=== PATIENT | female | born 1945 | race Caucasian/White ===

== ENCOUNTER → 2018-02-20 09:08 | Outpatient (CLI) | payer MEDICARE, OTHER, SELFPAY ==
[2018-02-20 10:30] LABS: Absolute Lymphocyte Count 0.86 X10^3/ul (0.83-4.51); Absolute Neutrophil Count 1.3 X10^3/uL (2.0-7.7); Basophil# 0.01 X10^3/uL; Basophil% 0.4 % (0-1); Eosinophil# 0.06 X10^3/uL; Eosinophils% 2.4 % (0-5); Hematocrit 35.6 % (37-47); Hemoglobin 10.9 g/dl (12.0-15.0); Lymphocyte # 0.86 X10^3/ul (4.0); Lymphocyte % 35.1 % (19-41); Mean Corp Hgb Conc 30.6 g/gl (32-36); Mean Corpuscular Hgb 23.7 pg (27.0-32.0); Mean Corpuscular Volume 77.6 fL (81-99); Monocyte# 0.25 X10^3/uL; Monocyte% 10.2 % (0-10); Neutrophil # 1.27 X10^3/uL (2.7-7.7); Neutrophil % 51.9 % (47-70); Platelet Count 67 K/mm3 (150-450); RBC Distribution Width CV 18.5 % (11.6-14.6); RBC Distribution Width SD 52.2 fl (35.1-43.9); Red Blood Count 4.59 M/mm3 (4.2-5.4); White Blood Count 2.5 K/mm3 (4.4-11.0)
[2018-02-20 10:32] LABS: Differential Indicated SCAN CRITERIA MET; POSITIVE COUNT NO; POSITIVE DIFFERENTIAL NO; POSITIVE MORPHOLOGY YES
[2018-02-20 10:59] LABS: ALB/GLOB Ratio 0.8 RATIO (0.9-2.4); AST(SGOT) 40 U/L (15-37); Alanine Aminotransfer ALT/SGPT 40 U/L (13-56); Albumin, Serum 3.1 g/dL (3.2-5.0); Alkaline Phosphatase 89 U/L (45-117); Anion Gap 6 (5-15); BUN 11 mg/dL (7-18); BUN/Creat Ratio 15.5 RATIO (10-20); Calcium,Total 8.2 mg/dL (8.5-10.1); Chloride 107 mmol/L (98-107); Creatinine, Serum 0.71 mg/dL (0.55-1.02); EST Glomerular Filtration Rate 86 mL/min (>60); Est Glom Filt Rate - Afr Amer 104 mL/min (>60); Glucose 94 mg/dL (74-106); Potassium 3.8 mmol/L (3.5-5.1); Protein, Total 7.1 g/dL (6.4-8.2); Protein, Urine (Random) < 6.0 mg/dL (<11.9); Protein:Creat Ratio 107 mg/g CRE (0-200); Sodium Level 141 mmol/L (136-145)
[2018-02-20 11:01] LABS: Color, Urine Yellow (Yellow); Glucose, Dipstick Normal (Normal); Ketone-Dipstick Negative (Negative); Leukocyte Esterase-Dipstick 25 /ul (Negative); Nitrite-Dipstick Negative (Negative); Occult Blood-Urine Negative /ul (Negative); Protein-Dipstick Negative (Negative); Specific Gravity, Urine 1.005 (1.002-1.030); Urine Bilirubin Dipstick Negative (Negative); Urine Clarity Clear (Clear); Urine Urobilinogen Normal (Normal)
== END ==
PROVIDERS: Family Provider Family Medicine; PCP Family Medicine; Visit Provider Internal Medicine Rheumatology
DX: M35.00 Sjogren syndrome, unspecified (principal); E89.0 Postprocedural hypothyroidism; I10 Essential (primary) hypertension
CPT/HCPCS: 36415; 80053; 81002; 82570; 84156; 85025

== ENCOUNTER → 2018-10-13 09:07 | Outpatient (CLI) | payer MEDICARE, OTHER, SELFPAY ==
[2018-10-13 10:01] LABS: Color, Urine Yellow (Yellow); Glucose, Dipstick Normal (Normal); Ketone-Dipstick Negative (Negative); Leukocyte Esterase-Dipstick 500 /ul (Negative); Nitrite-Dipstick Negative (Negative); Occult Blood-Urine 50 /ul (Negative); Protein-Dipstick 15 mg/dl (Negative); Urine Bilirubin Dipstick Negative (Negative); Urine Clarity Sl. Cloudy (Clear); Urine Urobilinogen Normal (Normal)
[2018-10-13 10:27] LABS: Differential Indicated SCAN CRITERIA MET; Hemoglobin 8.9 g/dl (12.0-15.0); Mean Corp Hgb Conc 29.7 g/gl (32-36); Mean Corpuscular Hgb 21.2 pg (27.0-32.0); Mean Corpuscular Volume 71.4 fL (81-99); POSITIVE COUNT NO; POSITIVE DIFFERENTIAL NO; POSITIVE MORPHOLOGY YES; Platelet Count 92 K/mm3 (150-450); RBC Distribution Width CV 19.7 % (11.6-14.6); RBC Distribution Width SD 50.2 fl (35.1-43.9); White Blood Count 2.8 K/mm3 (4.4-11.0)
[2018-10-13 10:28] LABS: Absolute Lymphocyte Count 0.78 X10^3/ul (0.83-4.51); Absolute Neutrophil Count 1.7 X10^3/uL (2.0-7.7); Basophil# 0.01 X10^3/uL; Basophil% 0.4 % (0-1); Eosinophil# 0.06 X10^3/uL; Eosinophils% 2.2 % (0-5); Lymphocyte # 0.78 X10^3/ul (4.0); Monocyte# 0.24 X10^3/uL; Monocyte% 8.6 % (0-10); Neutrophil % 60.8 % (47-70)
[2018-10-13 10:41] LABS: Protein, Urine (Random) 21.8 mg/dL (<11.9); Protein:Creat Ratio 125 mg/g CRE (0-200)
[2018-10-13 10:46] LABS: ALB/GLOB Ratio 0.8 RATIO (0.9-2.4); AST(SGOT) 40 U/L (15-37); Alanine Aminotransfer ALT/SGPT 37 U/L (13-56); Albumin, Serum 3.1 g/dL (3.2-5.0); Alkaline Phosphatase 79 U/L (45-117); Anion Gap 9 (5-15); BUN 12 mg/dL (7-18); BUN/Creat Ratio 16.1 RATIO (10-20); Calcium,Total 8.3 mg/dL (8.5-10.1); Chloride 109 mmol/L (98-107); Creatinine, Serum 0.74 mg/dL (0.55-1.02); EST Glomerular Filtration Rate 81 mL/min (>60); Est Glom Filt Rate - Afr Amer 98 mL/min (>60); Globulin 4.1 g/dL (2.2-4.2); Glucose 97 mg/dL (74-106); Potassium 3.8 mmol/L (3.5-5.1); Protein, Total 7.2 g/dL (6.4-8.2); Sodium Level 142 mmol/L (136-145)
[2018-10-13 11:05] LABS: Anisocytosis 2+; Differential Comment SCANNED; Hypochromasia 2+; Platelet Estimate SLT DEC (ADEQ)
--- OUTSIDE RECORDS SUMMARY | 2018-12-06 12:04 | XMS RPT_ITS ---
:1945 Author Organization OHIP Care Team Providers Name Role Phone EDI REINA Referring Unavailable EDI REINA Attending Unavailable EDI REINA Referring Unavailable KEENAN SOUTH Admitting Unavailable KEENAN SOUTH Attending Unavailable KEENAN SOUTH Primary Care Unavailable KEENAN SOUTH Consulting Unavailable PROVIDER, UNKNOWN Consulting Unavailable PROVIDER, UNKNOWN Consulting Unavailable PROVIDER, UNKNOWN Consulting Unavailable KEENAN SOUTH Admitting Unavailable KEENAN SOUTH Attending Unavailable KEENAN SOUTH Primary Care Unavailable KEENAN SOUTH Consulting Unavailable PROVIDER, UNKNOWN Consulting Unavailable PROVIDER, UNKNOWN Consulting Unavailable PROVIDER, UNKNOWN Consulting Unavailable Remi, Lizzie Attending Unavailable [facility] Unavailable Vellanfransisco, Lizzie Attending Unavailable Remi, Lizzie Referring Unavailable [facility] Unavailable PROBLEMS PROBLEMS DATE TYPE CONDITION / CODE ATTENDING STATUS SOURCE 10/13/2018 Unknown M35.00 - Sicca Vellanki, Active [place] syndrome, [facility] unspecified / Hospital M35.00(ICD-10) Repository 10/13/2018 Unknown E89.0 - Vellanki, Active [facility] hypothyroidism / Hospital E89.0(ICD-10) Repository 10/13/2018 Unknown I10 - Essential Remi, Active [place] (primary) [facility] hypertension / Hospital I10(ICD-10) Repository 08/18/2018 Admitting Hypothyroidism, KEENAN SOUTH Active [facility] unspecified / [facility] E039(ICD-10) Hospital Repository 08/18/2018 Principle HypothyroidismSVEN SCOTT Active [facility] unspecified / [facility] E039(ICD-10) [facility] Repository 01/15/2018 Active Unknown / EDI REINA A Active [facility] [place] Repository 01/14/2017 Active Decreased white NA Active [facility] blood cell count, [facility] unspecified / [place] D72.819(ICD-10) Repository 06/05/2011 Active Thrombocytopenia, NA Active [facility] unspecified / [facility] D69.6(ICD-10) [place] Repository PROCEDURES PROCEDURES No Procedure Records FoundRESULTS RESULTS URINALYSIS, ROUTINE Collected: 10/13/2018 Status: F Source: [place] ([place] 9:18 [place] [facility] Order Comment: How was Urine Obtained? CLEAN CATCH TYPE CODE TESTS RESULT OUT OF RANGE REFERENCE UNITS LAB L400.3000 Yellow COLOR Normal Yellow LAB L400.3050 Clear Normal CLARITY Sl. Cloudy LAB L400.3200 Normal mg/dl Normal GLUCOSE, UR Normal LAB L400.3300 Negative mg/dL Normal BILIRUBIN URINE Negative LAB L400.3400 Negative mg/dl Normal KETONE UR Negative LAB L400.3465 1.002-1.030 Normal SP.GR. DIPSTX 1.010 LAB L400.3550 5.0 - 8.0 pH UR Normal 7.0 LAB L400.3600 Negative mg/dl High PROT 15 DIPSTX LAB L400.3700 Normal mg/dl Normal UROBILI Normal LAB L400.3750 Negative Normal NITRITE UR Negative LAB L400.3780 Negative /ul High 50 OCCULT BLOOD-UR LAB L400.3800 Negative /ul High LEUK ESTERASE 500 Performed By: #### L400.2010 #### [facility] [address] [place], [address] CBC W/DIFF, AUTOMATED Collected: 10/13/2018 Status: F Source: [place] 9:18 AM [facility] [place] TYPE CODE TESTS RESULT OUT OF RANGE REFERENCE UNITS LAB L100.1000 4.4-11.0 K/mm3 Low 2.8 WBC LAB L100.1200 4.2-5.4 M/mm3 4.20 Normal RBC LAB L100.1300 12.0-15.0 g/dl Low 8.9 HGB LAB L100.1400 37-47 % Low 30.0 HCT LAB L100.1500 81-99 fL Low 71.4 MCV LAB L100.1600 27.0-32.0 pg Low 21.2 MCH LAB L100.1700 32-36 g/gl Low 29.7 MCHC LAB L100.1810 11.6-14.6 % High 19.7 RDW CV LAB L100.1820 35.1-43.9 fl High 50.2 RDW SD LAB L100.1900 150-450 K/mm3 Low 92 PLT LAB L100.2000 6.2-12.0 fl Test Normal MPV not performed LAB L100.2100 47-70 % 60.8 Normal NEUT% LAB L100.2200 19-41 % 28.0 Normal LY% LAB L100.2300 0-10 % 8.6 Normal MONO% LAB L100.2400 0-5 % 2.2 Normal EO% LAB L100.2500 0-1 % 0.4 Normal BASO% LAB L100.2550 0.0-0.9 % 0.000 Normal IM GRAN % Result Comment: IG% - Immature Granulocytes (promyelocytes, myelocytes and metamyelocytes) > 1% indicates that a LEFT SHIFT is Present. LAB L100.2620 2.0-7.7 X10 3/uL Low Absolute Neut 1.7 LAB L100.2720 0.83-4.51 X10 3/ul Low Absolute Lymph 0.78 LAB L100.4500 SMEAR COMMENT Normal SCANNED LAB L100.5500 ADEQ PLT EST Normal SLT DEC LAB L100.7300 ANISO Normal 2+ LAB L100.7600 HYPOCHROMASIA Normal 2+ Performed By: #### L100.0100 #### [facility] [address] [place], [address] PROTEIN+CREATININE Collected: Status: F Source: [place] [facility],URINE 10/13/2018 9:18 AM [facility] [place] TYPE CODE TESTS RESULT OUT OF RANGE REFERENCE UNITS LAB L501.1200 NO RANGE EST. mg/dL Normal UR CREAT 174.00 LAB L501.1930 <11.9 mg/dL High 21.8 PROTEIN,UR.R AN. LAB L501.1940 0-200 mg/g CRE Normal PROT:CRE 125 RATIO Performed By: #### L501.0900 #### [facility] [place], [address] COMPREHENSIVE METABOLIC Collected: 10/13/2018 Status: F Source: [place] [facility] 9:18 AM [facility] [place] TYPE CODE TESTS RESULT OUT OF RANGE REFERENCE UNITS LAB L501.0100 74-106 mg/dL Normal GLU 97 Result Comment: Please note revised GLUCOSE reference range effective 2017. LAB L501.1000 7-18 mg/dL Normal BUN 12 LAB L501.1100 0.55-1.02 mg/dL Normal CREAT,SERUM 0.74 Result Comment: The validity of the calculated GFR AND GFRAA in patients over 70 years has not been determined. Clinical correlation is essential. LAB L501.1110 >60 mL/min Normal EST GFR 81 Result Comment: Non- GFR Calc LAB L501.1115 >60 mL/min Normal EST GFR - AA 98 Result Comment: GFR Calc LAB L501.1300 10-20 RATIO Normal BUN/CRE 16.1 LAB L501.1500 6.4-8.2 g/dL T Normal PROT 7.2 LAB L501.1800 3.2-5.0 g/dL Low ALB 3.1 LAB L501.1950 2.2-4.2 g/dL Normal GLOB 4.1 LAB L501.2000 0.9-2.4 RATIO Low A/G 0.8 LAB L501.2200 8.5-10.1 mg/dL Low CA 8.3 LAB L501.4100 15-37 U/L High AST 40 LAB L501.4305 45-117 U/L Normal ALK P 79 LAB L501.4405 13-56 U/L Normal ALT 37 LAB L501.4600 0.20-1.00 mg/dL T Normal BILI 0.60 LAB L501.5300 136-145 mmol/L NA Normal 142 LAB L501.5600 3.5-5.1 mmol/L K Normal 3.8 LAB L501.5900 98-107 mmol/L High CL 109 LAB L501.6100 21.0-32.0 mmol/L Normal CO2 24.0 LAB L501.6200 5-15 Normal GAP 9 Performed By: #### L500.4050 #### [facility] [address] [place] [address], [id number] TSH Collected: 08/18/2018 Status: F Source: [facility] 12:20 PM [facility] REPOSITORY TYPE CODE TESTS RESULT OUT OF RANGE REFERENCE UNITS LAB TSH(LOINC) 0.34 - 5.60 uIU/ml High TSH 9.12 Performed By: #### [id number] #### [facility],[address] [place] [id number] CBC W/DIFF, AUTOMATED Collected: 02/20/2018 Status: F Source: [place] 9:17 AM [facility] [place] TYPE CODE TESTS RESULT OUT OF RANGE REFERENCE UNITS LAB L100.1000 4.4-11.0 K/mm3 Low WBC 2.5 LAB L100.1200 4.2-5.4 M/mm3 Normal RBC 4.59 LAB L100.1300 12.0-15.0 g/dl Low HGB 10.9 LAB L100.1400 37-47 % Low HCT 35.6 LAB L100.1500 81-99 fL Low MCV 77.6 LAB L100.1600 27.0-32.0 pg Low MCH 23.7 LAB L100.1700 32-36 g/gl Low MCHC 30.6 LAB L100.1810 11.6-14.6 % High RDW CV 18.5 LAB L100.1820 35.1-43.9 fl High RDW SD 52.2 LAB L100.1900 150-450 K/mm3 Low PLT 67 LAB L100.2100 47-70 % Normal NEUT% 51.9 LAB L100.2200 19-41 % Normal LY% 35.1 LAB L100.2300 0-10 % High MONO% 10.2 LAB L100.2400 0-5 % Normal EO% 2.4 LAB L100.2500 0-1 % Normal BASO% 0.4 LAB L100.2550 0.0-0.9 % Normal IM GRAN % 0.000 Result Comment: IG% - Immature Granulocytes (promyelocytes, myelocytes and metamyelocytes) > 1% indicates that a LEFT SHIFT is Present. LAB L100.2620 2.0-7.7 X10 3/uL Low Absolute Neut 1.3 LAB L100.2720 0.83-4.51 X10 3/ul Normal Absolute Lymph 0.86 Performed By: #### L100.0100 #### [facility] [address] [place], [address] COMPREHENSIVE METABOLIC Collected: 02/20/2018 Status: F Source: [facility] 9:17 AM [facility] TYPE CODE TESTS RESULT OUT OF RANGE REFERENCE UNITS LAB L501.0100 74-106 mg/dL Normal GLU 94 Result Comment: Please note revised GLUCOSE reference range effective 2017. LAB L501.1000 7-18 mg/dL Normal BUN 11 LAB L501.1100 0.55-1.02 mg/dL Normal CREAT,SERUM 0.71 Result Comment: The validity of the calculated GFR AND GFRAA in patients over 70 years has not been determined. Clinical correlation is essential. LAB L501.1110 >60 mL/min Normal EST GFR 86 Result Comment: Non- GFR Calc LAB L501.1115 >60 mL/min Normal EST GFR - AA 104 Result Comment: GFR Calc LAB L501.1300 10-20 RATIO Normal BUN/CRE 15.5 LAB L501.1500 6.4-8.2 g/dL T Normal PROT 7.1 LAB L501.1800 3.2-5.0 g/dL Low ALB 3.1 LAB L501.1950 2.2-4.2 g/dL Normal GLOB 4.0 LAB L501.2000 0.9-2.4 RATIO Low A/G 0.8 LAB L501.2200 8.5-10.1 mg/dL Low CA 8.2 LAB L501.4100 15-37 U/L High AST 40 LAB L501.4305 45-117 U/L Normal ALK P 89 LAB L501.4405 13-56 U/L Normal ALT 40 Result Comment: Please note revised ALT reference range effective 2017. LAB L501.4600 0.20-1.00 mg/dL Normal T BILI 0.80 LAB L501.5300 136-145 mmol/L Normal NA 141 LAB L501.5600 3.5-5.1 mmol/L Normal K 3.8 LAB L501.5900 98-107 mmol/L Normal CL 107 LAB L501.6100 21.0-32.0 mmol/L Normal CO2 28.0 LAB L501.6200 5-15 Normal GAP 6 Performed By: #### L500.4050 #### [facility] [address] [place], [address] PROTEIN+CREATININE Collected: Status: F Source: [place],URINE 02/20/2018 9:17 AM [facility] [place] TYPE CODE TESTS RESULT OUT OF RANGE REFERENCE UNITS LAB L501.1200 NO RANGE EST. mg/dL Normal UR CREAT 46.70 LAB L501.1930 <11.9 mg/dL Normal < 6.0 PROTEIN,UR.R AN. LAB L501.1940 0-200 mg/g CRE Normal PROT:CRE 107 RATIO Performed By: #### L501.0900 #### [facility] [address] [place], [address] URINALYSIS, ROUTINE Collected: 02/20/2018 Status: F Source: [place] ([place]) 9:17 AM [facility] [place] Order Comment: How was Urine Obtained? CLEAN CATCH TYPE CODE TESTS RESULT OUT OF RANGE REFERENCE UNITS LAB L400.3000 Yellow COLOR Normal Yellow LAB L400.3050 Clear Normal CLARITY Clear LAB L400.3200 Normal mg/dl Normal GLUCOSE, UR Normal LAB L400.3300 Negative mg/dL Normal BILIRUBIN URINE Negative LAB L400.3400 Negative mg/dl Normal KETONE UR Negative LAB L400.3465 1.002-1.030 Normal SP.GR. DIPSTX 1.005 LAB L400.3550 5.0 - 8.0 pH UR Normal 7.0 LAB L400.3600 Negative mg/dl PROT Normal DIPSTX Negative LAB L400.3700 Normal mg/dl Normal UROBILI Normal LAB L400.3750 Negative Normal NITRITE UR Negative LAB L400.3780 Negative /ul Normal OCCULT BLOOD-UR Negative LAB L400.3800 Negative /ul High LEUK 25 ESTERASE Performed By: #### L400.2010 #### [facility] [address] [place], [address] PROGRESS Observed: 01/15/2018 Status: COMPLETED Source: [place] 9:10 AM [facility] REPOSITORY HNO ID: [id number] Author: Edi Reina Service: (none) Author Type: Physician Type: Progress Notes Filed: 01/15/2018 9:29 AM Note Text: Diagnosis: 1) Thrombocytopenia. HPI: The patient is a 72 yo female who has h/o Sjogren's syndrome. Diagnosed about 11 years ago after presenting with sicca syndrome. Treated symptomatically with Sialagen for a few years, but then stopped after her symptom of dry mouth seemed to improve after changing BP meds. She developed swelling left ankle in March 2011 and was seen by PCP. Labs included a CBC that revealed a WBC count of 3.7K and Hgb=14.2 and a platelet count of 74K. Was also noted to have increase RF and AST/ALT so was referred to a sheet turner at [facility]. Underwent attempt at arthrocentesis of ankle as well as injection of cortisone. Was asked to see a sheet layer for low platelets. Stopping HCTZ had not helped platelet count. No evidence serum monoclonal antibody (per labs ordered by Dr. Skinner). No evidence antiphospholipid antibody or lupus anticoagulant. Bone marrow aspirate and biopsy showed only mild increase in blasts (4%) and the presence of hematogones. The left shift and hematogones were c/w an underlying rheumatologic disorder. Presents for ongoing surveillance/management. Interim history: She says she's been feeling really good. She has some mild arthritic pain in the hands but no other musculoskeletal pain. Her symptoms of dry eye or under good control with cyclosporine eyedrops. She says her xerostomia is not as bad as it used to be. She feels that she has better energy. She's had no unusual bleeding or unexplained bruising. Since I saw her year ago, she's had no hospitalizations or acute illnesses. No episodes of fever, chills or night sweats. Appetite is normal. No early satiety or left upper quadrant pain. PMH, medications and allergies as below personally reviewed by me today. Any changes documented in appropriate section. ROS: Constitutional: See above. Neuro: Denies SHEPARD, vertigo and imbalance. No symptoms of neuropathy. HEENT: No recent change in voice, vision or hearing. Resp: Denies cough, wheeze and hemoptysis. No shortness of breath at rest. No HITCHCOCK. CVS: Denies exertional chest pain, PND, orthopnea and LE edema. GI: Denies reflux, n/v, change in bowel habits and abdominal pain. : No dysuria or gross hematuria. No symptoms of bladder outlet obstruction. Endo: No hot flashes. Musculoskeletal: See above. Derm: No rash. Heme: No unusual bleeding or bruising. Psych: Normal mood. PHYSICAL EXAM: Vitals: Blood pressure 128/74, pulse 75, temperature 36.4 ?C (97.5 ?F), height 161.9 cm (5' 3.75), weight 64.9 kg (143 lb). Well-appearing and in no acute distress. EYES: Sclerae are anicteric bilaterally. ENT: Oral mucosa is unremarkable. No longer having tender swelling of parotid glands. NECK: Supple. LYMPHATIC: There is no palpable cervical, supraclavicular or axillary or inguinal adenopathy. RESPIRATORY: Inspiratory breath sounds are of normal intensity in all green. No rales, wheezes or rhonchi. CARDIOVASCULAR: Rhythm is regular. Normal intensity S1/S2. ABDOMEN: The abdomen is nondistended. There is no organomegaly. No tenderness. Extremities: No edema. SKIN: No jaundice or rash. No petechiae. NEUROLOGIC: water chaser II-XII are grossly intact. No focal motor weakness. DTRs are normal. MUSCULOSKELETAL: No left ankle swelling, edema or tenderness. 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 Assessment: -Mild intermittent leukopenia. -Patient has two other autoimmune disorders (thyroid and Sjogren's) that make ITP most likely. -Normal bone marrow 09/2011. -No symptoms or exam findings to raise concern of lymphoma. -No unusual bleeding or bruising problems. Plan: -OV with CBC in about a year. Edi Reina DO CNOVSP Observed: 01/15/2018 Status: COMPLETED Source: [place] 9:10 AM [facility] REPOSITORY Visit (SP) Office (HEMISAAC) JASMINE YOU ([id number]) 1945 F Date Time Provider Department 01/15/18 9:10 AM EDI REINA During your visit today, we recorded the following information about you: Temperature Pulse Blood pressure Weight 97.5 degrees 75/minute 128/74 64.9 kg Height 1.619 m Yaneth Topete LPN, LPN 01/15/2018 9:10 AM Signed 1 year f/u, Discuss recent lab results CARLOS Almanza DO 01/15/2018 9:29 AM Signed Diagnosis: 1) Thrombocytopenia. HPI: The patient is a 72 yo female who has h/o Sjogren's syndrome. Diagnosed about 11 years ago after presenting with sicca syndrome. Treated symptomatically with Sialagen for a few years, but then stopped after her symptom of dry mouth seemed to improve after changing BP meds. She developed swelling left ankle in March 2011 and was seen by PCP. Labs included a CBC that revealed a WBC count of 3.7K and Hgb=14.2 and a platelet count of 74K. Was also noted to have increase RF and AST/ALT so was referred to a sheet turner at [facility]. Underwent attempt at arthrocentesis of ankle as well as injection of cortisone. Was asked to see a sheet layer for low platelets. Stopping HCTZ had not helped platelet count. No evidence serum monoclonal antibody (per labs ordered by Dr. Skinner). No evidence antiphospholipid antibody or lupus anticoagulant. Bone marrow aspirate and biopsy showed only mild increase in blasts (4%) and the presence of hematogones. The left shift and hematogones were c/w an underlying rheumatologic disorder. Presents for ongoing surveillance/management. Interim history: She says she's been feeling ANDquot;really good.ANDquot; She has some mild arthritic pain in the hands but no other musculoskeletal pain. Her symptoms of dry eye or under good control with cyclosporine eyedrops. She says her xerostomia is not as bad as it used to be. She feels that she has better energy. She's had no unusual bleeding or unexplained bruising. Since I saw her year ago, she's had no hospitalizations or acute illnesses. No episodes of fever, chills or night sweats. Appetite is normal. No early satiety or left upper quadrant pain. PMH, medications and allergies as below personally reviewed by me today. Any changes documented in appropriate section. ROS: Constitutional: See above. Neuro: Denies SHEPARD, vertigo and imbalance. No symptoms of neuropathy. HEENT: No recent change in voice, vision or hearing. Resp: Denies cough, wheeze and hemoptysis. No shortness of breath at rest. No HITCHCOCK. CVS: Denies exertional chest pain, PND, orthopnea and LE edema. GI: Denies reflux, n/v, change in bowel habits and abdominal pain. : No dysuria or gross hematuria. No symptoms of bladder outlet obstruction. Endo: No hot flashes. Musculoskeletal: See above. Derm: No rash. Heme: No unusual bleeding or bruising. Psych: Normal mood. PHYSICAL EXAM: Vitals: Blood pressure 128/74, pulse 75, temperature 36.4 ?C (97.5 ?F), height 161.9 cm (5' 3.75ANDquot;), weight 64.9 kg (143 lb). Well-appearing and in no acute distress. EYES: Sclerae are anicteric bilaterally. ENT: Oral mucosa is unremarkable. No longer having tender swelling of parotid glands. NECK: Supple. LYMPHATIC: There is no palpable cervical, supraclavicular or axillary or inguinal adenopathy. RESPIRATORY: Inspiratory breath sounds are of normal intensity in all green. No rales, wheezes or rhonchi. CARDIOVASCULAR: Rhythm is regular. Normal intensity S1/S2. ABDOMEN: The abdomen is nondistended. There is no organomegaly. No tenderness. Extremities: No edema. SKIN: No jaundice or rash. No petechiae. NEUROLOGIC: water chaser II-XII are grossly intact. No focal motor weakness. DTRs are normal. MUSCULOSKELETAL: No left ankle swelling, edema or tenderness. 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 Assessment: -Mild intermittent leukopenia. -Patient has two other autoimmune disorders (thyroid and Sjogren's) that make ITP most likely. -Normal bone marrow 09/2011. -No symptoms or exam findings to raise concern of lymphoma. -No unusual bleeding or bruising problems. Plan: -OV with CBC in about a year. Edi Renia DO Referring Provider: EDI REINA [[id number]] Allergies As of Date: 01/15/2018 Noted Allergy Reaction ALEVE (NAPROXEN SODIUM) 06/05/2011 7 - Swelling 9 - Itching BACTRIM (SULFAMETHOXAZOLE) 06/05/2011 7 - Swelling Date Reviewed: 01/15/2018 Reviewed by: Yaneth Ceja (Carlos) CARLOS Topete - Fully Assessed Reason for Visit: Established Patient [175] Primary Visit Diagnosis:Thrombocytopenia (HCC) [D69.6] Other Visit Diagnosis:Leukopenia, unspecified type [D72.819] Follow-up and Disposition History Recorded Prescriptions as of 01/15/2018 Sig: SYNTHROID 88 MCG TABLET 1 tablet once daily. VITAMIN D-3 ORAL Take 1 tablet by mouth once d* AMLODIPINE 2.5 MG TABLET Take 2.5 mg by mouth once harvey* POTASSIUM CHLORIDE ER 10 MEQ * Take 10 mEq by mouth once harvey* * CYCLOSPORINE 0.05 % EYE DROPS* Use 1 Drop in both eyes twice* Medication notes this encounter CYCLOSPORINE 0.05 % EYE DROPS IN A DROPPERETTE >> Yaneth Topete LPN, LPN 01/15/2018 9:02 AM >> YANETH TOPETE SatJan 15, 2018 9:02 AM discontinued >> Yaneth Topete LPN, LPN 01/15/2018 9:03 AM >> YANETH TOPETE SatJan 15, 2018 9:03 AM Medication not discontinued SYNTHROID 112 MCG TABLET >> Yaneth Topete LPN, LPN 01/15/2018 9:01 AM >> YANETH TOPETE SatJan 15, 2018 9:01 AM Discontinued, dosage change VITAMIN D2 50,000 UNIT CAPSULE >> Yaneth Topete LPN, LPN 01/15/2018 9:04 AM >> YANETH TOPETE SatJan 15, 2018 9:04 AM Not taking >> Yaneth Topete LPN, LPN 01/15/2018 9:06 AM >> YANETH TOPETE SatJan 15, 2018 9:06 AM discontinued AMLODIPINE 5 MG TABLET >> Yaneth Topete LPN, LPN 01/15/2018 9:03 AM >> YANETH TOPETE SatJan 15, 2018 9:03 AM Discontinued, dosage change Problem List As Of Date 01/15/2018 Noted Resolved Thrombocytopenia [D69.6] INVALID FOR* Sicca syndrome [M35.00] INVALID FOR* Screen for colon cancer [Z12.11] INVALID FOR*09/03/2012 Cough [R05] INVALID FOR*09/03/2012 Benign colon polyp [K63.5] INVALID FOR*09/03/2012 Leukopenia [D72.819] INVALID FOR* Visit Notes: >> Yaneth Topete LPN SatJan 15, 2018 9:07 AM Status: Signed 1 year f/u, Discuss recent lab results Yaneth Topete LPN Encounter Status:Closed by EDI REINA DO on 01/15/18 [place] ABS GR + CBC Collected: 01/15/2018 Status: F Source: [place] 8:[address] [facility] [place] REPOSITORY TYPE CODE TESTS RESULT OUT OF REFERENCE UNITS RANGE LAB WWBC 3.70-11.00 k/uL Low [place] WBC 2.53 LAB WRBC 3.90-5.20 m/uL [place] RBC 4.65 LAB WHGB 11.5-15.5 g/dL [place] Hemoglobin 11.5 LAB WHCT 36.0-46.0 % [place] Hematocrit 36.6 LAB WMCV 80.0-100.0 fL Low [place] MCV 78.7 LAB WMCH 26.0-34.0 pg Low [place] MCH 24.7 LAB WMCHC 30.5-36.0 g/dL [place] MCHC 31.4 LAB WRDW 11.5-15.0 % [place] High RDW 16.6 LAB WPLT 150-400 k/uL Low [place] Platelet Cnt 82 Result Comment: No clot detected. Result checked and verified LAB WMPV 9.0-12.7 fL [place] MPV Unable to report LAB ABGRAN 1.45-7.50 k/uL Low Absol Gran 1.26 Count Performed By: #### WAGCBC #### [facility] [address] [place] [address] MAMM DIGITAL BILAT Observed: 11/14/2017 Status: F Source: [place]NA SCREEN 9:08 AM [facility] REPOSITORY [place] [id number] [place] [address] Patient: JASMINE YOU Phone#: : 1945 Age: 72 Gender: F Pt. Type: Out Account: [id number] Location: Ordering: [facility] Exam Date: 11/14/2017/9:32 Family Phys: Charge Code: [id number] Physician: Mes[place] Order #: [id number] DLP Dose#: PROCEDURE: MAMM BILAT DIGITAL SCREENING WITH CAD COMPARISON: [facility], BILAT SCREENING, 04/28/2013, 9:15. [facility], BILAT SCREENING, 09/13/2015, 8:47. [facility], , BILAT SCREENING, 10/16/2016, 8:25. INDICATIONS: Screening BREAST COMPOSITION: Heterogeneously dense, which could obscure small masses (51-75% glandular). FINDINGS: DIAGNOSTIC CATEGORY 1--NEGATIVE ASSESSMENT. RIGHT BREAST: No significant suspicious finding. There are vascular calcifications. No significant change has occurred. LEFT BREAST: No significant suspicious finding. There are vascular calcifications. In the left upper breast there is coarse calcifications, most likely representing calcified fibroadenoma No significant change has occurred. RECOMMENDATIONS: ROUTINE MAMMOGRAM AND CLINICAL EVALUATION. PLEASE NOTE: A NORMAL MAMMOGRAM DOES NOT EXCLUDE THE POSSIBILITY OF BREAST CANCER. A CLINICALLY SUSPICIOUS PALPABLE LUMP SHOULD BE BIOPSIED. THIS FACILITY UTILIZES A REMINDER SYSTEM TO ENSURE THAT ALL PATIENTS RECEIVE REMINDER LETTERS FOR APPOINTMENTS. THIS INCLUDES REMINDERS FOR ROUTINE MAMMOGRAMS, DIAGNOSITC MAMMOGRAMS, OR OTHER BREAST IMAGING INTERVENTIONS WHEN APPROPRIATE. THIS PATIENT WILL BE PLACED IN THE APPROPRIATE REMINDER SYSTEM. Continued Report - Page 2 of 2 Patient: JASMINE YOU Phone#: : 1945 Age: 72 Gender: F Pt. Type: Out Account: [id number] Location: Ordering: [facility] Exam Date: 11/14/2017/9:32 Family Phys: Charge Code: [id number] Physician: Mesa Order #: [id number] DLP Dose#: Dictated by: Ana Rosa Hernadez MD on 11/14/2017 at 9:17 Approved by: Ana Rosa Hernadez MD on 11/14/2017 at 9:17 ALLERGIES ALLERGIES DATE TYPE / NAME / CODE REACTION SEVERITY SOURCE CODE 06/05/2011 DRUG NAPROXEN SODIUM SWELLING [address] [id number]([facility]) Repository 06/05/2011 DRUG SULFAMETHOXAZOLE SWELLING [address] [id number]([facility]) Repository Drug ALEVE/76085068(RXNORM) Moderate Nicanor Pomerene Allergy/41 ([facility] [id number]( Modifier) [facility]) (Qualifier Repository Value) Drug BACTRIM/60242905(RXNOR Moderate Nicanor Pomerene Allergy/41 M) ([facility] [id number]( Modifier) Hospital [facility]) (Qualifier Repository Value) ENCOUNTERS ENCOUNTERS ADMIT/DISCHARGE ACCOUNT ADMITTING ENCOUNTER LOCATION SOURCE NUMBER CLASS 10/13/2018 [id number] [facility] ing:MTLAB Repository 08/18/2018/08/18/20 [id number] [place] [address] Repository 02/20/2018 [id number] [facility] ing:MTLAB Repository 01/15/2018/01/17/[id number] Repository 01/15/2018/01/17/[id number] Repository 11/14/2017/11/14/19 [id number] [place] [address] Repository PAYERS PAYERS ENCOUNTER GUARANTOR PAYER SUBSCRIBER SOURCE 10/13/2018 JASMINE E Primary JASMINE E [place] [address] Insurance:MEDICARE YODERDOB: [place] [id number] DEAL PART A BPolicy Number: [id number] [place], [place] [id number] Repository 63[address]Cgd: 330 Date:2018-10-13 [phone] (EU) 10/13/2018 Secondary JASMINE E [place] Insurance:MEDICAL YODERDOB: [id number]: Repository [id number] Date:5949-16-53[address] [address]OG: 10/13/2018 Tertiary NOT GIVENUNK [place] Insurance:SELF PAY [facility] Number: Effective Repository Date:2018-10-13 08/18/2018 JASMINE E Primary JASMINE E Nicanor Pomerene YODERDOB: Insurance:MEDICARE YODERDOB: [facility] [id number] [id number] [id number] Number: [id number] Repository [facility] [id number] [place] Date:Plan Name:[facility] [id number]: (HP) 08/18/2018 Secondary JASMINE E Nicanor Pomerene Insurance:MEDICAL YODERDOB: [facility] [id number] [facility] [address] Repository Number: TERRY [place]AEFER [id number] [place] [id number] Date:Plan Name: 02/20/2018 JASMINE E Primary JASMINE E [place] YODERP O BOX Insurance:MEDICARE YODERDOB: [facility] [id number] [place] [address] PART A BPolicy Number: [id number] [place] [address] [id number] Repository [address]Flq: 330 Date:2018-02-20 [phone] (HP) 02/20/2018 Secondary JASMINE E Mel[place] Insurance:MEDICAL YODERDOB: [address] Number: Repository [id number] Date:5964-99-43GX [address] [place] [id number]: 02/20/2018 Tertiary NOT GIVENUNK [place] Insurance:SELF PAY [facility] Number: Effective Repository Date:2018-02-20 11/14/2017 JASMINE E Primary JASMINE E Nicanor Pomerene YODERDOB: Insurance:MEDICARE YODERDOB: [id number] Number: [id number] Repository [place], [id number] [place] Date:Plan Name:[facility] [id number]: () 11/14/2017 Secondary JASMINE E Nicanor Pomerene Insurance:MEDICAL YODERDOB: [id number] OUTPATIENTPolicy [id number] Repository Number: [place]ERRY [place]AEFER [id number] [place] [id number] Date:
== END ==
PROVIDERS: Family Provider Family Medicine; PCP Family Medicine; Referring Provider Internal Medicine Rheumatology; Visit Provider Internal Medicine Rheumatology
DX: M35.00 Sjogren syndrome, unspecified (principal); E89.0 Postprocedural hypothyroidism; I10 Essential (primary) hypertension
CPT/HCPCS: 36415; 80053; 81002; 82570; 84156; 85025

== ENCOUNTER → 2019-07-31 16:00 | Outpatient (CLI) | payer MEDICARE, OTHER, SELFPAY ==
[2019-07-31 17:35] LABS: Hematocrit 45.8 % (37-47); Hemoglobin 15.3 g/dL (12.0-15.0); Mean Corp Hgb Conc 33.4 g/dL (32-36); Mean Corpuscular Hgb 31.5 pg (27.0-32.0); Mean Corpuscular Volume 94.2 fL (81-99); Platelet Count 65 K/mm3 (150-450); RBC Distribution Width CV 15.2 % (11.6-14.6); RBC Distribution Width SD 53.1 fl (35.1-43.9); Red Blood Count 4.86 M/mm3 (4.2-5.4); White Blood Count 3.5 K/mm3 (4.4-11.0)
== END ==
PROVIDERS: Family Provider Family Medicine; PCP Family Medicine; Referring Provider Urology; Visit Provider Urology
DX: D41.4 Neoplasm of uncertain behavior of bladder (principal)
CPT/HCPCS: 36415; 85027

== ENCOUNTER 2019-08-04 09:03 | Day surgery (SDC) | payer MEDICARE, OTHER, SELFPAY ==
[2019-08-04] VITALS (14 sets, daily range): BP systolic 129–177; BP diastolic 74–114; PULSE 60–92; RESP 16; TEMP 36.2–36.9; O2SAT 92–100; BMI 24.7
[2019-08-04] MEDS: Cefazolin 2 GM in 0.9% Normal Saline 100 ML IV (03:59)
--- NOTE | 2019-08-04 09:11 | EKG12_ITS ---
Test Reason : PRE OP Blood Pressure : / mmHG Vent. Rate : 075 BPM Atrial Rate : 075 BPM P-R Int : 136 ms QRS Dur : 078 ms QT Int : 394 ms P-R-T Axes : 046 -02 030 degrees QTc Int : 439 ms Normal sinus rhythm Normal ECG No previous ECGs available Confirmed by KASH CASTANEDA, ELLA ([id number]), publications editor JULIO FABIAN ([id number]) on 08/07/2019 10:27:10 A M Referred By: Gina Pantoja Confirmed By:JESSEE HEWITT MD
[2019-08-04 09:44] LABS: International Normalized Ratio 1.2; Partial Thromboplast Time 31.5 Seconds (24.1-36.2); Prothrombin Time (Protime)PT. 14.9 SECONDS (11.7-14.9)
[2019-08-04 10:01] LABS: AST(SGOT) 37 U/L (15-37); Alanine Aminotransfer ALT/SGPT 46 U/L (13-56); Albumin, Serum 3.5 g/dL (3.2-5.0); Alkaline Phosphatase 87 U/L (45-117); Bilirubin, Direct 0.26 mg/dL (0.00-0.30); Globulin 4.4 g/dL (2.2-4.2); Protein, Total 7.9 g/dL (6.4-8.2); Thyroid Stim Hormone (TSH) 9.81 uIU/mL (0.358-3.74)
[2019-08-04] MEDS: Lactated Ringers 1,000 ML 100 ML IV ×2 (10:11→16:40)
--- NOTE | 2019-08-04 12:00 | BLB_PTH ---
PATIENT: JASMINE YOU [place] [facility] [place][id number] AGE/SX: 73/F ROOM: RE08/04/[address]: Dr. Gina Pantoja MD : 1945 BED: DIS: 08/04/2019 SPEC #: [id number] RECD: 08/04/19 17:03 STATUS: PAM VILCHIS #: [id number] LYN: 08/04/19 12:[address]: Gina Pantoja DEPT: SURGICAL PATHOLOGY RECD BY: Lidia Sharma ENTERED: 08/05/19 09:16 SP TYPE: TURB OTHR DR: Dr. Keenan South MD Tissues: Urinary bladder, NOS Procedures: Surgery Specimen Level V HEADER OPERATION: Cystoscopy, TURBT medium, bilateral retrograde pyelograms PRE-OP DIAGNOSIS: Gross hematuria, urgency, neoplasm of uncertain behavior of bladder TISSUE SUBMITTED: Bladder tumor MICROSCOPIC DIAGNOSIS Bladder tumor, TUR: Invasive urothelial carcinoma. See cancer summary below. SJ:rg 08/06/19 BLADDER CANCER (TUR) SUMMARY: Procedure - TURBT Histologic type - urothelial (transitional cell) carcinoma Associated epithelial lesions - none identified Histologic grade - urothelial carcinoma (WHO 2004/ISUP) - high grade (3/3) Tumor configuration - invasive Adequacy of material for determining muscularis propria invasion - muscularis propria (detrusor muscle) is present and is involved by the tumor. Lymph-Vascular invasion - not identified Microscopic extent of tumor - tumor invades muscularis propria (detrusor muscle) Additional pathologic findings - chronic inflammation The above summary is in compliance with [employer] of [place] [employer] (CAP) Cancer Protocols Checklist and [place] Joint Committee on Cancer (AJCC), Staging Manual, 8th Ed. COMMENT Case has been reviewed in consultation with Dr. Sotelo who concurs with the above diagnosis. IDC:AM MICROSCOPIC DESCRIPTION Slides are reviewed. GROSS DESCRIPTION Received in fixative is one container labeled with the patient's name and designated bladder tumor. The specimen consists of multiple irregular fragments of pastrana-brown soft to indurated tissue that in aggregate measure 7.5 x 3 x 0.3 cm. The entire specimen is submitted in three cassettes. / NELLIE:sergio 08/05/19 TC:0 CPT: 92552
--- NOTE | 2019-08-04 13:41 | PCM.DC.URO ---
Discharge Diet: No Restrictions Discharge Activity: May not drive while taking narcotic pain medications. May resume sexual activity in: 1-2 weeks, 2 weeks Call your doctor if you observe: Fever of 101 or Higher, Inability to urinate, Shortness of breath, Chest pain, Calf discomfort, Uncontrolled pain Allergies/Adverse Reactions: Allergies naproxen [From Aleve] Allergy (Verified 08/04/19 09:27) Swelling sulfamethoxazole [From Bactrim] Allergy (Verified 08/04/19 09:27) Swelling trimethoprim [From Bactrim] Allergy (Verified 08/04/19 09:27) Swelling Medications to take at Discharge Amlodipine [Norvasc] 5 mg PO DAILY 08/03/19 Cephalexin [Keflex] 500 mg PO TID 08/03/19 Cholecalciferol (Vitamin D3) [Vitamin D3] 2,000 unit PO DAILY 08/03/19 CycloSPORINE Ophthalmic [Restasis Ophthalmic] 1 drp OPHTHALMIC (EYE) BID 08/03/19 Estradiol [Estrace Vaginal Cream] 1 dose VAGINAL BID 08/03/19 Iron,Carbonyl [Carbonyl Iron] 65 mg PO QODAY 08/03/19 Levothyroxine [Synthroid] 50 mcg PO QODAY 08/03/19 Levothyroxine [Synthroid] 75 mcg PO QODAY 08/03/19 Potassium Chloride 10 meq PO DAILY 08/03/19 Cephalexin [Keflex] 500 mg PO Q12 3 Days #6 cap 08/04/19 Oxycodone HCl/Acetaminophen [Percocet 5/325] 1 - 2 tab PO Q6H PRN PRN 7 Days #20 tab 08/04/19 Phenazopyridine HCl [Pyridium] 200 mg PO TID PRN PRN 7 Days #30 tab 08/04/19 The following prescriptions were given: Cephalexin [Keflex] 500 mg PO Q12 3 Days #6 cap Prescription Printed Oxycodone HCl/Acetaminophen [Percocet 5/325] 1 - 2 tab PO Q6H PRN PRN 7 Days #20 tab PRN Reason: Pain Prescription Printed Phenazopyridine HCl [Pyridium] 200 mg PO TID PRN PRN 7 Days #30 tab PRN Reason: Bladder Spasms Prescription Printed Orders to be completed after discharge: Liver Profile Time Frame: 08/04/19, Facility: [facility], Location: Laboratory Partial Thromboplast Time Time Frame: 08/04/19, Facility: [facility], Location: Laboratory Prothrombin Time w/INR Time Frame: 08/04/19, Facility: [facility], Location: Laboratory Thyroid Stim Hormone (TSH) Time Frame: 08/04/19, Facility: [facility], Location: Laboratory Primary Care Physician: Keenan South [Primary Care Provider] - Test Results: Test results from this visit will be discussed in further detail at your follow-up appointment, if applicable. Please Follow Up With: Gina Pantoja MD When: 1 week, call for appt. Proposed Discharge Date: 08/04/19
--- NOTE | 2019-08-04 13:42 | PCM.OPRPT ---
Problem List (1) Bladder mass Status: Acute (2) Gross hematuria Status: Acute Report of Operation Date of Procedure: 08/04/19 Pre-Operative Diagnosis: bladder mass, gross hematuria Post-Operative Diagnosis: same Surgery/Procedure Performed:: cystoscopy, bilateral retrograde pyelograms, transurethral resection bladder tumor Description of Surgical Findings:: There were no filling defects in the collecting system. The same tumor identified in the office was the only one seen on cystoscopic evaluation. It was removed and I am concerned that there may be muscular involvement. On vaginal exam there is no palpable tumor or fixed tissue. The ureteral orifice was not involved with tumor. Type of Anesthesia:: General Specimen's removed: bladder mass Description of Procedure: The patient is a 73-year-old female with a known bladder mass seen on cystoscopy in the office last week. All risk benefits and alternatives were discussed and informed consent was obtained for transurethral resection of the bladder tumor with possible stent insertion, bilateral retrograde programs. Patient was taken to the operating room and placed in the operating room table. Anesthesia monitored the head, neck, airway, IV access and vital signs throughout the case. Once anesthesia was appropriately administered the patient was placed into dorsal lithotomy position was prepped and draped in usual sterile fashion. A cystourethroscopy was then performed and both ureteral orifices were clearly identified. An 8 Croatian cone-tip catheter was used to cannulate the left ureteral orifice and a retrograde pyelogram was performed under fluoroscopic visualization revealing no evidence of obstruction or filling defect. The process was then repeated on the patient's right side and once again there were no filling defects or abnormalities identified. At this time the 24 Croatian resectoscope was used to resect the bladder tumor in its entirety. The base of the tumor was then cauterized for hemostatic control and tissue treatment. At the conclusion of the cautery there were no areas bleeding and the irrigation fluid was clear. The ureteral orifice remain uninvolved at the end of the case. A pelvic exam revealed no fixed or thickened tissue. An abdominal exam at the conclusion of the case revealed soft nondistended bladder. The patient was awakened and taken to the recovery room in good condition. There were no complications during the procedure. Grafts/Implants Used: None - Complications None - Admit VTE Documentation VTE Present on Admission: Yes VTE Mechan Device Prophylaxis: SCD's VTE Pharm Prophylaxis ordered?: No Reason prophylaxis not ordered:: Treatment Not Indicated
[2019-08-04 15:01] LABS: Platelet Count 69 K/mm3 (150-450)
[2019-08-04 15:05] LABS: Differential Indicated SCAN CRITERIA MET
== END 2019-08-04 20:05 | disposition home or self-care (01) ==
LOC: SDC 09:04 → AC 09:04 → MS3 15:37 → AC 16:12
PROVIDERS: Anesthesiology; Family Provider Family Medicine; PCP Family Medicine; Referring Provider Urology; Visit Provider Urology
PROC: 0TBB8ZZ Excision of Bladder, Via Natural or Artificial Opening Endoscopic (ICD-10-PCS; CPT 52235; principal; 2019-08-04 11:50)
DX: C67.9 Malignant neoplasm of bladder, unspecified (principal); I10 Essential (primary) hypertension; M35.00 Sjogren syndrome, unspecified; D64.9 Anemia, unspecified; D69.6 Thrombocytopenia, unspecified; E03.9 Hypothyroidism, unspecified; L71.9 Rosacea, unspecified; Z78.0 Asymptomatic menopausal state; Z87.440 Personal history of urinary (tract) infections; Z90.710 Acquired absence of both cervix and uterus; Z79.899 Other long term (current) drug therapy
CPT/HCPCS: 52235; 76000; 80076; 84443; 85049; 85610; 85730; 86900; 86901; 86965; 88307; 93005; J7040; J7120; P9035; J2405; J3490; J9280

== ENCOUNTER → 2019-08-10 15:24 | Outpatient (CLI) | payer MEDICARE, OTHER, SELFPAY ==
[2019-08-04 09:29] VITALS: BMI 24.7
--- NOTE | 2019-08-10 15:26 | CT_ITS ---
STUDY: CT ABDOMEN AND PELVIS WITH AND WITHOUT CONTRAST REASON FOR EXAM: Female, 73 years old. Gross hematuria, recent tumor resection from bladder RADIATION DOSAGE (If Supplied By Facility): CTDIvol = ( 14.12 ) mGy, DLP = ( 1753.52 ) mGycm TECHNIQUE: Transaxial images were obtained from the dome of the diaphragm to the symphysis pubis without oral contrast. IV Isovue 300 100 was administered. Sagittal and coronal images were reconstructed. Individualized dose optimization techniques were used for this CT. COMPARISON: None. FINDINGS: Lung bases are clear. Inferior mediastinal structures are normal. The liver is end-stage cirrhotic with 2 hypodense lesions in segment 1. Portal vein is patent. There are extensive splenic varices.. There is moderate to severe splenomegaly. There is no biliary dilation. There are small gallstones. There is no ascites. There are no urinary calculi or hydronephrosis. There are no solid renal lesions. The right adrenal contains a 1.3 cm benign adenoma. Left adrenal is normal. There is focal thickening and enhancement of the right lateral bladder base without exophytic lesion. There is an intraluminal bubble of gas likely related to recent procedure. There is no intestinal obstruction. There is mesenteric edema was probably due to portal hypertension of cirrhosis. Osseous structures are intact. CT/CT Abd/Pelvis W/WO Contrast IMPRESSION: 1. Focal bladder thickening, postsurgical change and/or residual tumor. Refer to cystoscopy. 2. Unremarkable upper urinary tracts. 3. End-stage cirrhosis. Incompletely characterized hepatic lesions, refer to definitive hepatic protocol imaging. Primary possibility is cysts. Electronically Signed: Abel Boyle, at 16:18 EDT Tel , Service support ,
[2019-08-10 15:41] LABS: CREATININE FINGERSTICK 0.7 mg/dL (0.55-1.02); EGFR FINGERSTICK > 60.0000 mL/min (>60)
== END ==
PROVIDERS: Family Provider Family Medicine; PCP Family Medicine; Referring Provider Urology; Visit Provider Urology
DX: R31.0 Gross hematuria (principal)
CPT/HCPCS: 74178; Q9967; A4216

== ENCOUNTER → 2019-08-28 13:03 | Outpatient (CLI) | payer MEDICARE, OTHER, SELFPAY ==
[2019-08-04 09:29] VITALS: BMI 24.7
--- NOTE | 2019-08-28 13:42 | CT_ITS ---
HISTORY: BLADDER CA TECHNIQUE: Helically acquired images were obtained of the chest following the intravenous administration of 100 ml of 100mL Isovue-300 Iodinated contrast. as per pulmonary angiogram protocol with 2D MIP reconstructions. A radiation dose optimization technique was used for this scan. COMPARISON: CT scan of the abdomen and pelvis was performed on August 10, 2019. That study begins at the level of the aortic valve. FINDINGS: # of images incl. paperwork: 732 Lungs are clear but for trace dependent basilar atelectasis. Lungs are likely mildly hyperexpanded. No effusions. Within the thoracic spinebony alignment is normal. Vertebral body height is normal. Facets are well aligned. No rib lesions are perceived. Heart is not enlarged. Thoracic aorta elongated with atherosclerotic plaque. No aneurysms, stenoses, dissections, nor occlusions. No axillary or mediastinal adenopathy. Timing of the contrast bolus is more optimized for the thoracic aorta that is the pulmonary arteries. Although no pulmonary emboli are perceived within the pulmonary arteries, the negative predictive value of this study is significantly diminished Cirrhosis persists. Of the visualized portions of the liver there are 2 hypodense lesions. These were demonstrated better on the CT scan of the abdomen and pelvis with multiphase imaging from August 10, 2019. Additional hypodense lesions were also demonstrated at that time. They have not increased in size. Please refer to that report for further characterization. Splenomegaly persists. Varices are suspected. Some benign-appearing calcifications are present within the left breast. CT/Chest WITH Contrast IMPRESSION: No pulmonary embolism, aortic aneurysm, or aortic dissection. The negative predictive value of this study to exclude pulmonary embolism is diminished due to the timing of the contrast bolus more optimized for the thoracic aorta and the pulmonary arteries. Cirrhosis. Splenomegaly. Varices. Evidence to suggest portal venous hypertension. No metastatic pulmonary nodules perceived. Individualized dose optimization techniques were used for this CT. at 8918 Reported and signed by: Enrico Rodriguez MD Electronically Signed: Enrico Rodriguez MD at 22:46 EDT Tel , Service support ,
== END ==
PROVIDERS: Family Provider Family Medicine; PCP Family Medicine
DX: C67.9 Malignant neoplasm of bladder, unspecified (principal)
CPT/HCPCS: 71260; 71270; Q9967

== ENCOUNTER 2019-09-18 08:41 | Day surgery (SDC) | payer MEDICARE, OTHER, SELFPAY ==
[2019-08-04 09:29] VITALS: BMI 24.7
[2019-09-18] VITALS (9 sets, daily range): BP systolic 126–144; BP diastolic 75–88; PULSE 72–85; RESP 16; TEMP 36.2–36.4; O2SAT 98–100; BMI 25.3
--- NOTE | 2019-09-18 08:51 | PCM.HP.BLA ---
History and Physical Date of Admission: 09/18/19 Emily Ellis 1945 ? ? REFERRING PHYSICIAN: ??Edi Reina DO ? CHIEF COMPLAINT: ??Consult ? HPI: The patient is a 73 year old female?presents with new diagnosis of bladder cancer. It is metastatic. She has also known portal hyper tension with esophageal varices. She presents for placement of portacath for chemotherapy. She has known thrombocytopenia with last plt count at 59K ? PAST MEDICAL HISTORY ? Effusion of ankle and foot joint ? ? Essential hypertension, benign ? ? History of shingles ? ? Hypopotassemia ? ? Pain in joint, multiple sites ? ? Rosacea ? ? Sjogren's syndrome (HCC) ? ? Unspecified diffuse connective tissue disease (HCC) ? ? Unspecified hypothyroidism ? PAST SURGICAL HISTORY ? COLONOSCOP W/ OR W/O BRS SPEC ? 10/31/11 ? Repeat in ? COLONOSCOP W/ OR W/O BRS SPEC ? 02/25/2019 ? Colonoscopy ? CYSTOSCOPY ? 08/04/2019 ? EXCISION FIRST AND/OR CERVICAL RIB ? 1965 ? s ? HYSTERECTOMY HX ? 1994 ? per Dr. Lewis, [facility]? ?? Current Outpatient Medications: ferrous sulfate (IRON ORAL) Take by mouth every 48 hours. amLODIPine (NORVASC) 5 mg tablet Take 5 mg by mouth once daily. COMPOUNDED PRESCRIPTION C-E2 0.01%/TEST 0.05% CRM: Apply one gram to vulva twice daily x 2 weeks, at bedtime x 4 weeks, then 3 times weekly. COMPOUNDED PRESCRIPTION C-ESTRIOL 1MG/ML VAC CRM: Apply one gram intraginally twice weekly. Cholecalciferol, Vitamin D3, (VITAMIN D) 1,000 unit cap Take 1,000 Units by mouth once daily. levothyroxine (SYNTHROID) 50 mcg tablet Take 50 mcg by mouth every other day. levothyroxine (SYNTHROID) 75 mcg tablet Take 75 mcg by mouth every other day. potassium chloride (K-TAB) 10 mEq tablet Take 10 mEq by mouth once daily. cycloSPORINE 0.05 % OPHTHALMIC ophthalmic emulsion Use 1 Drop in both eyes twice daily as needed. CALCIUM CARBONATE/VITAMIN D3 (VITAMIN D-3 ORAL) Take 1 tablet by mouth once daily. amLODIPine (NORVASC) 2.5 mg tablet Take 2.5 mg by mouth once daily. ?? ALLERGIES:?Aleve [Naproxen Sodium]; Bactrim [Sulfamethoxazole] ? PERSONAL HISTORY:?Social History ??Socioeconomic History ?Marital status: ?Spouse name: Jamaal ?Number of children: 2 ?Years of education: Not on file ?Highest education level: Not on file ?Tobacco Use ?Smoking status: Never Smoker ?Smokeless tobacco: Never Used ??Substance and Sexual Activity ?Alcohol use: Yes ?Comment: rare ? FAMILY HISTORY ? Heart Mother ? ? Diabetes Father ? ? Diabetes Brother ? ? Diabetes Sister ? ?? REVIEW OF SYSTEMS: ?General: ??The patient denies fatigue, denies weight loss, denies weight gain, denies feeling hot, and denies feelings of cold. ?Eyes: ?The patient denies glaucoma, denies eye injury/surgery, does not wear glasses or contacts. ?Ear/Nose/Throat: ?The patient denies allergies, denies hayfever, denies ear infections, and denies bloody noses. ?Cardiovascular: ?The patient denies chest pain, denies heart disease, NOTES high blood pressure,denies cardiac stent, denies prior heart attack, denies irregular heart beat, denies high cholesterol, ?denies poor circulation, denies heart failure, other cardiac issues, denies claudication, denies cold feet, denies peripheral arterial stent. ?Respiratory: ?The patient denies tuberculosis, denies pneumonia, denies frequent cough, denies pulmonary embolism, denies shortness of breath, and denies coughing up blood. ?Gastrointestinal: ?The patient denies difficulty swallowing, denies acid reflux, denies ulcers, denies vomiting, denies jaundice/hepatitis, denies gallbladder problems, denies black or tarry stools, denies hemorrhoids, denies bleeding from rectum, denies diverticulitis, denies constipation, denies diarrhea, denies loss of stool control, and denies hernias. ?Kidney/Bladder: ?The patient denies kidney stones, denies urine infections, and denies bloody urine. ?Skin: ?The patient denies a history of skin cancer, denies bleeding/changing moles, and denies a history of skin rash. ?? PHYSICAL EXAMINATION: General: ?The patient is 73 year old female, well nourished, well hydrated in no acute distress. ?The patient is oriented to time, place, and person. VITALS:?Blood pressure 140/76, pulse 93, temperature 36.1 ?C (97 ?F), temperature source Temporal Artery, height 161.9 cm (5' 3.75), weight 67.6 kg (149 lb), SpO2 97 %.?Body mass index is 25.78 kg/m?.? Head ? Normocephalic. EOM intact with sclera clear and no icterus noted. Mouth with mucus membranes moist. Neck - supple with no jugular venous distention noted. Trachea is midline. . Lungs ? clear to auscultation.?normal breath sounds. No rales/rhonchi/wheezing noted. No labored breathing noted, such as retractions. No cough heard. Heart ? normal S1 and S2 auscultated. No rubs/clicks/murmurs noted. Regular rate. Abdomen ? soft and benign. Normal bowel sounds. Extremities ? no calf tenderness noted. No pitting edema noted.. Skin ? normal skin integrity. Neurological ??gait normal, no focal deficits noted. Psych ? calm and appropriate ? ?? IMPRESSION:?metastatic bladder cancer, portal hypertension with esophageal varices ? PLAN: ??I have discussed the above with the patient. Plan placement of portacath. She does have thrombocytopenia, may require platelet transfusion after procedure. I have counseled patient as to risks of procedure, including but not limited to: infection, bleeding, injury to lung, inability to place portacath, injury to blood vessels, etc. - she understands. She wishes to proceed. I have answered all questions to the patient?s satisfaction and the patient has no further questions. .
[2019-09-18] MEDS: Lactated Ringers 1,000 ML 75 ML IV (10:07)
--- NOTE | 2019-09-18 10:28 | PCM.OPRPT ---
Report of Operation Date of Procedure: 09/18/19 Pre-Operative Diagnosis: exhausted IV access, bladder cancer, need for chemotherapy Post-Operative Diagnosis: same Surgery/Procedure Performed:: placement of permanent indwelling tunnelled catheter in right internal jugular vein with subcutaneous port Description of Surgical Findings:: normal right IJ anatomy to SVC Type of Anesthesia:: Local MAC Anesthesiologist: Bob Cuevas Specimen's removed: none Estimated Blood Loss (mL): < 10 ml Fluids Replaced: 600 ml RL Description of Procedure: After informed consent was given, the patient was brought to the Operating Room. Appropriate time out protocol was followed. She was then placed in the supine position. She was then given IV conscious sedation for anesthesia. The patient?s upper chest and neck were then prepped with a surgical skin preparation and sterile surgical drapes were placed. The US transducer was brought into the operative field with a sterile sheath. Real time US was done to identify for the right internal jugular vein. After proper landmarks were ascertained, the skin at the upper left chest area was then infiltrated with 1% xylocaine with epinephrine. A needle trocar was then inserted into the right internal jugular vein as directed by the US transducer, and there was good aspiration of venous blood. A wire was then threaded into the needle trocar and this was visualized under fluoroscopy to ensure that the wire was in the right internal jugular vein. Once this was done, then the needle trocar was removed. A small skin danielle was made with an 11 blade knife at the wire entrance site. The dilator with the introducer sheath attached was then placed over the wire into the right internal jugular vein via the Seldinger technique and this was visualized under fluoroscopy. The dilator and sheath were in proper position as visualized by fluoroscopy. The wire and dilator were then removed. The catheter was then threaded into the introducer sheath and was positioned with its tip at the junction of the superior vena cava and the right atrium as visualized under fluoroscopy. The catheter was flushed with a heparin saline mixture prior to placement. A subcutaneous pocket was then created caudad to the catheter insertion site. A transverse skin incision was made after the skin and subcutaneous tissues were infiltrated with local anesthetic. Blunt dissection was then used to create a space large enough for placement of the subcutaneous port. Hemostasis was carefully controlled with electrocautery. The port was sutured to the subcutaneous fascia using vicryl suture at three sites. The catheter was then tunneled into the subcutaneous pocket. The excess catheter was transected. The catheter was then attached to the subcutaneous port using mobile home park manager?s guidelines. The port was then placed in the subcutaneous pocket and the sutures were ligated. The subdermal incisional sites were reapproximated with interrupted vicryl suture. The skin was reapproximated with monocryl suture in a subcuticular fashion. Cavilon and steristrips were used for reinforcement of the skin closure and a sterile opsite dressing was applied. The patient was brought to the Recovery Room in stable condition Grafts/Implants Used: [employer] Port Lot [id number], exp 2020-10-10 - Complications none noted - Admit VTE Documentation VTE Present on Admission: Yes VTE Mechan Device Prophylaxis: SCD's
[2019-09-18] MEDS: Cefazolin 2 GM in 0.9% Normal Saline 100 ML IV (10:32)
--- NOTE | 2019-09-18 11:36 | RAD_ITS ---
STUDY: X-RAY CHEST REASON FOR EXAM: Female, 74 years old. Post port placement. TECHNIQUE: Single AP portable view of the chest. COMPARISON: None. FINDINGS: A right-sided wendy catheter has been placed. The tip is at the junction of the superior vena cava and right atrium. Hyperinflation. The lungs are clear. There is no demonstrated pleural abnormality. Normal size heart. Normal mediastinum and tory. Normal visualized pulmonary arteries. There is atherosclerotic calcification of the aortic arch with tortuosity. There are degenerative changes of the visualized thoracic spine. Normal visualized ribs, clavicles, and shoulders. There is no demonstrated abnormality of the visualized soft tissue structures of the upper abdomen. RAD/CXR for Line Placement IMPRESSION: The tip of the right-sided wendy catheter is at the junction of the superior vena cava and right atrium. Electronically Signed: Mumtaz Menjivar, at 12:53 EST , Service support ,
--- NOTE | 2019-09-18 11:39 | DCINST_ITS ---
Discharge Diet: No Restrictions Discharge Activity: Return to Normal Activity, May not drive while taking narcotic pain medications. Call your doctor if your incision/area has: Continuous Slow Oozing, Foul Smelling Discharge Additional Dressing/Incision Instructions:: leave dressings in place. may get wet in shower. do not soak - no tub baths/swimming Allergies/Adverse Reactions: Allergies naproxen [From Aleve] Allergy (Verified 09/18/19 09:23) Swelling sulfamethoxazole [From Bactrim] Allergy (Verified 09/18/19 09:23) Swelling trimethoprim [From Bactrim] Allergy (Verified 09/18/19 09:23) Swelling Medications to take at Discharge Amlodipine [Norvasc] 5 mg PO DAILY 08/03/19 Cholecalciferol (Vitamin D3) [Vitamin D3] 2,000 unit PO DAILY 08/03/19 CycloSPORINE Ophthalmic [Restasis Ophthalmic] 1 drp OPHTHALMIC (EYE) BID 08/03/19 Estradiol [Estrace Vaginal Cream] 1 dose VAGINAL BID 08/03/19 Iron,Carbonyl [Carbonyl Iron] 65 mg PO QODAY 08/03/19 Levothyroxine [Synthroid] 50 mcg PO QODAY 08/03/19 Levothyroxine [Synthroid] 75 mcg PO QODAY 08/03/19 Potassium Chloride 10 meq PO DAILY 08/03/19 Omeprazole 40 mg PO DAILY 09/16/19 Ondansetron [Zofran] 8 mg PO Q8H PRN PRN 09/16/19 Hydrocodone Bitart/Apap 5-325 [[place] 5MG-325MG] 1 tablet PO Q6H PRN PRN 5 Days #20 tablet 09/18/19 The following prescriptions were given: Hydrocodone Bitart/Apap 5-325 [[place] 5MG-325MG] 1 tablet PO Q6H PRN PRN 5 Days #20 tablet PRN Reason: Pain Transmission Status: Received by [facility]/pharmacy #[id number] Primary Care Physician: Keenan South [Primary Care Provider] - Test Results: Test results from this visit will be discussed in further detail at your follow- up appointment, if applicable. Please Follow Up With: Chacha Day MD - call When: to be see in 1-2 weeks, as needed, please call for date and time, thank you
--- NOTE | 2019-09-18 14:05 | SUR.PHASEII ---
AT 1212, DR FARRIS STATES SHE CHECKED THE PATIENT'S PCXR AND THE POWER PORT WAS IN THE CORRECT PLACEMENT. IT IS OK FOR PATIENT TO EAT AND DRINK
== END 2019-09-18 13:10 | disposition home or self-care (01) ==
LOC: SDC 08:41 → AC 08:42
PROVIDERS: Family Provider Family Medicine; PCP Family Medicine; Referring Provider Surgery; Visit Provider Surgery
PROC: (CPT 36561; principal; 2019-09-18 10:15)
DX: Z45.2 Encounter for adjustment and management of vascular access device (principal); C67.9 Malignant neoplasm of bladder, unspecified; K76.6 Portal hypertension; I85.10 Secondary esophageal varices without bleeding; D69.6 Thrombocytopenia, unspecified; L71.9 Rosacea, unspecified; M35.00 Sjogren syndrome, unspecified; E03.9 Hypothyroidism, unspecified; Z78.0 Asymptomatic menopausal state; Z86.19 Personal history of other infectious and parasitic diseases; Z79.899 Other long term (current) drug therapy
CPT/HCPCS: 36561; 71045; 77001; J7050; J7120; C1788